=== PATIENT | female | born 1950 | race Caucasian/White ===

== ENCOUNTER → 2024-07-02 13:22 | Outpatient (REF) | payer MEDICARE, SELFPAY | LOC: WDC 13:22 | PROVIDERS: ATTENDING PHYSICIAN Internal Medicine | DX: Z12.31 Encounter for screening mammogram for malignant neoplasm of breast (principal) | CPT/HCPCS: 77063; 77067 ==

== ENCOUNTER → 2024-11-29 09:37 | Outpatient (REF) | payer MEDICARE, SELFPAY | LOC: RAD 09:37 | PROVIDERS: ATTENDING PHYSICIAN Internal Medicine Rheumatology; FAMILY PHYSICIAN Internal Medicine | DX: M15.9 Polyosteoarthritis, unspecified (principal); M16.10 Unilateral primary osteoarthritis, unspecified hip; M47.816 Spondylosis without myelopathy or radiculopathy, lumbar region; M70.61 Trochanteric bursitis, right hip; M79.642 Pain in left hand | CPT/HCPCS: 72100; 73130; 73523 ==

== ENCOUNTER → 2025-04-10 09:09 | Outpatient (REF) | payer MEDICARE, SELFPAY | LOC: RAD 09:09 | PROVIDERS: ATTENDING PHYSICIAN Physician Assistant; FAMILY PHYSICIAN Internal Medicine | DX: M25.569 Pain in unspecified knee (principal) | CPT/HCPCS: 73560; 73565 ==

== ENCOUNTER → 2025-05-11 09:49 | Outpatient (REF) | payer MEDICARE, SELFPAY | LOC: PAVMRI 09:49 | PROVIDERS: ATTENDING PHYSICIAN Internal Medicine Rheumatology; FAMILY PHYSICIAN Internal Medicine | DX: M25.561 Pain in right knee (principal) | CPT/HCPCS: 73721 ==

== ENCOUNTER → 2025-05-16 11:33 | Outpatient (REF) | payer MEDICARE, SELFPAY | LOC: RCS 11:33 | PROVIDERS: ATTENDING PHYSICIAN Specialist; FAMILY PHYSICIAN Internal Medicine; OTHER PHYSICIAN Internal Medicine Cardiovascular Disease | DX: Z01.818 Encounter for other preprocedural examination (principal) | CPT/HCPCS: 93005 ==

== ENCOUNTER → 2025-05-26 09:21 | Outpatient (REF) | payer MEDICARE, SELFPAY | LOC: RAD 09:21 | PROVIDERS: ATTENDING PHYSICIAN Internal Medicine Rheumatology; FAMILY PHYSICIAN Internal Medicine | DX: M81.0 Age-related osteoporosis without current pathological fracture (principal); Z13.820 Encounter for screening for osteoporosis | CPT/HCPCS: 77080 ==

== ENCOUNTER → 2025-07-03 08:15 | Outpatient (REF) | payer MEDICARE, SELFPAY | LOC: WDC 08:15 | PROVIDERS: ATTENDING PHYSICIAN Internal Medicine | DX: Z12.31 Encounter for screening mammogram for malignant neoplasm of breast (principal) | CPT/HCPCS: 77063; 77067 ==